=== PATIENT | female | born 1945 | race Caucasian/White ===

== ENCOUNTER 2020-02-15 12:01 | Emergency (ER) | payer MEDICARE, OTHER ==
[~2020-02-15] VITALS: Ht 160 cm; Wt 73.0 kg
--- NOTE | ~2020-02-15 | EMS ---
[place] [address] EMS Patient Care Report Name: DEANA MARES Room: [facility]#: [id number] Admission: 02/15/20 Attend Phys: Discharge: Date of : 47 Report #: [id number] THIS REPORT FOR: //name// Report Transmitted: 02/15/2020 13:30 EMS Care Summary [facility] Incident [id number] @ 02/15/2020 10:54 Incident Location [address] [place] [address] Patient DEANA MARES Female, 74 Years 1945 Patient Address [address] [place] [address] Patient History Chronic Obstructive Pulmonary Disease (COPD),Cardiac - Stent,Type 2 Diabetes, Patient Allergies Metformin, Patient Medications ASA, Chief Complaint Shortness of breath Disposition Transported No Lights/[place] Dispatch Reason Breathing Problem Transported To [facility] Narrative Dispatch: [facility] was dispatched for a female patient who is Covid-19 positive with a complaint of SOB and weakness. Med 1 copied tones and went en route with lights and sirens [place] [address] EMS Patient Care Report Name: DEANA MARES Room: [facility]#: [id number] Admission: 02/15/20 Attend Phys: Discharge: Date of : 47 Report #: [id number] Chief Complaint: Med 1 arrived on scene to find the patient sitting upright in her chair. Patient stated she was very weak and had shortness of breath. Patient stated she felt like she "couldn't catch her breath." Patient did not appear to be in any distress or discomfort. History of present illness/CABRERA: Patient stated she tested positive for Covid-19 a week prior and was released from [facility] 2 days prior to EMS arrival. Patient stated she "did not feel like she should have been released so early." Patient stated she has felt weak since receiving the positive result. Patient has a history of COPD. Patient is normally on home oxygen for covid relief, but was not wearing any upon EMS arrival. Assessment: Airway: Clear, patent, and self maintained. Breathing: Clear, and equal bilaterally. Non labored. Circulation: Skin is pink, warm, and dry. Disability: A&OX4, GCS 15. Exposures: No life threats were found. See "assessments" tab for further. Reason for ambulance: Patient stated she felt weak and had SOB and requested EMS transport to [place]. Treatments: ALS assessment. 5 lead EKG showing normal sinus. ETCO2 nasal cannula. 20G IV RAC. Vitals monitored throughout transport. Summary: Med 1 arrived on scene to find the patient sitting upright in her chair. Patient did not appear to be in any distress or discomfort. Patient stated she feels weak and has SOB. She states she tested positive for Covid-19 a week prior and was released from [facility] 2 days prior to EMS arrival for the same symptoms. Patient was released from the hospital on home oxygen at 2 liters nasal cannula. The patient stated she wanted to be transported to [facility] for further treatment and assessment. The patient was then placed onto the cot, secured in place, and placed into the ambulance for transport. Med 1 went en route with no lights or sirens to [place]. The patient was placed on 2 liters ETCO2 nasal cannula. A 5 lead EKG was performed showing normal sinus rhythm. A 20G IV was established and 100ML of LR was given throughout transport. The patient's overall condition improved throughout transport with oxygen administration. Radio report was given and no further questions or orders were received. Med 1 arrived at destination and the patient self transferred onto the hospital bed. Report was given and signatures and paperwork were received. Med 1 returned back in service. Initial Vitals @11:18R: 16,GCS: 15,Temp: 98.1F,Glucose: 187, @11:29P: 73,R: 17,EtCO2: 30,SpO2: 96, [place] [address] EMS Patient Care Report Name: DEANA MARES Room: [facility]#: [id number] Admission: 02/15/20 Attend Phys: Discharge: Date of : 47 Report #: [id number] @11:44P: 73,R: 15,EtCO2: 28,SpO2: 92,VT Suspected: false @11:50P: 73,R: 16,BP: 121/88,EtCO2: 25,SpO2: 94, @11:39P: 78,R: 14,BP: 113/56,EtCO2: 32,SpO2: 92, @11:24P: 76,R: 13,BP: 111/86,EtCO2: 26,SpO2: 97, @11:34P: 79,R: 18,BP: 80/57,EtCO2: 29,SpO2: 92, @11:13P: 0,R: 20,GCS: 15,EtCO2: 18,SpO2: 97,VT Suspected: false @11:19P: 79,R: 21,BP: 103/56,EtCO2: 28,SpO2: 90,VT Suspected: false Assessments @11:05MENTAL:Time Oriented,Person Oriented,Place Oriented,Event Oriented,SKIN:HEENT:LUNG SOUNDS:ABDOMEN:PELVIS//GI:EXTREMITIES:PULSE:Radial: 2+ Normal,NEURO:@11:20MENTAL:Person Oriented,Time Oriented,Place Oriented,Event Oriented,SKIN:HEENT:LUNG SOUNDS:ABDOMEN:PELVIS//GI:EXTREMITIES:PULSE:Radial: 2+ Normal,NEURO: Impression COVID-19 - Confirmed by testing Procedures @11:04ALS AssessmentResponse: UnchangedSucceeded@11:36Lactated Ringers 100cc (20 ga) Site: Antecubital-RightResponse: UnchangedSucceeded@11:15Oxygen FlowRate: 2 Device: CO2 Nasal Cannula Response: Improvedcceeded Timeline 10:54,Call Received 10:54,Dispatched 10:58,En Route 11:02,On Scene 11:03,At Patient 11:04,ALS Assessment,Response: UnchangedSucceeded, 11:13,BP: / M,PULSE: 0,RR: 20 R,SPO2: 97 Ox,ETCO2: 18 ,BG: ,PAIN: ,GCS: 15, 11:15,Oxygen FlowRate: 2 Device: CO2 Nasal Cannula Response: ImprovedSucceeded, 11:15,Depart Scene 11:18,BP: / M,PULSE: ,RR: 16 R,SPO2: Ox,ETCO2: ,B,PAIN: ,GCS: 15, 11:19,BP: 103/56 M,PULSE: 79,RR: 21 R,SPO2: 90 Ox,ETCO2: 28 ,BG: ,PAIN: ,GCS: , 11:24,BP: 111/86 M,PULSE: 76,RR: 13 R,SPO2: 97 Ox,ETCO2: 26 ,BG: ,PAIN: ,GCS: , 11:29,BP: / M,PULSE: 73,RR: 17 R,SPO2: 96 Ox,ETCO2: 30 ,BG: ,PAIN: ,GCS: , 11:34,BP: 80/57 M,PULSE: 79,RR: 18 R,SPO2: 92 Ox,ETCO2: 29 ,BG: ,PAIN: ,GCS: , 11:36,Lactated Ringers 100cc 20 ga Site: Antecubital-Right,Response: UnchangedSucceeded, 11:39,BP: 113/56 M,PULSE: 78,RR: 14 R,SPO2: 92 Ox,ETCO2: 32 ,BG: ,PAIN: ,GCS: , 11:44,BP: / M,PULSE: 73,RR: 15 R,SPO2: 92 Ox,ETCO2: 28 ,BG: ,PAIN: ,GCS: , 11:50,BP: 121/88 M,PULSE: 73,RR: 16 R,SPO2: 94 Ox,ETCO2: 25 ,BG: ,PAIN: ,GCS: , 11:53,At Destination 13:02,[place] [address] EMS Patient Care Report Name: DEANA MARES [id number] Admission: 02/15/20 Attend Phys: Discharge: Date of : 47 Report #: [id number] Disclaimer [email or web address] Copyright 2020 [employer] This EMS Care Summary contains data elements from the applicable legal record (which may be displayed differently). It is designed to provide pertinent information for the following purposes: continuity of care, clinical quality, and state data reporting. The complete legal record is available to ED staff and administrators of the receiving hospital in [employer]'s Patient Tracker. All data is provided "as is."
[2020-02-15 12:52] LABS: HEMATOCRIT 39.3 % (37.0-47.0); HEMOGLOBIN 12.8 gm/dL (12.0-15.0); MCH 30.7 pg (26.0-34.0); MCHC 32.6 g/dL (28.0-37.0); MCV 94.2 fL (80.0-100.0); MPV 9.3 fl. (7.2-11.1); NUCLEATED RBCS 0 /100WBC; PLATELET COUNT* 209 thou/uL (150-400); RBC 4.17 mil/uL (4.20-5.00); RDW-CV 13.4 % (10.5-14.5); WBC 13.6 thou/uL (4.0-11.0)
[2020-02-15 13:03] LABS: CALCIUM 8.9 mg/dL (8.5-10.1); POTASSIUM 3.7 mmol/L (3.5-5.1)
[2020-02-15 13:13] LABS: ALBUMIN 2.5 g/dL (3.4-5.0); APTT 22.5 Seconds (25.0-31.3); INR 1.1; PROTIME 11.2 Seconds (9.20-11.50); TOTAL BILIRUBIN 0.7 mg/dL (<0.1-1.0); TOTAL PROTEIN 6.7 g/dL (6.4-8.2)
[2020-02-15 13:26] LABS: ABSOLUTE EOSINOPHILS 0.1 thou/uL (0.0-0.7); ABSOLUTE LYMPHOCYTES 1.8 thou/uL (0.8-5.3); ABSOLUTE MONOCYTES 0.7 thou/uL (0.0-1.2); ANISOCYTOSIS 1+; PLATELET ESTIMATE ADEQUATE; POIKILOCYTOSIS 1+
[2020-02-15] MEDS ORDERED: ZOLOFT50 M1 PO (14:06)
[2020-02-15] MEDS ORDERED: CELEBREX 200 M200 M1 PO (14:07)
[2020-02-15] MEDS ORDERED: ASA81BEC PO (14:07)
[2020-02-15] MEDS ORDERED: DESYREL150 MG PO (14:07)
[2020-02-15] MEDS ORDERED: LIBRAX CAPSULE1 EACH PO (14:07)
[2020-02-15] MEDS ORDERED: TRELEGY ELLIPT1 EACH INH (14:08)
[2020-02-15] MEDS ORDERED: ALBUTEROL0.63 MG/3 INH (14:09)
[2020-02-15] MEDS ORDERED: MULTIVITAMINS1 EAC7 PO (14:09)
[2020-02-15] MEDS ORDERED: TOPROL XL25 MG PO (14:09)
[2020-02-15] MEDS ORDERED: AMARYL1 MG PO (14:09)
[2020-02-15] MEDS ORDERED: PRILOSEC OTC20 MG PO (14:10)
[2020-02-15] MEDS ORDERED: FIBER LAX625 MG PO (14:10)
[2020-02-15] MEDS ORDERED: CRESTOR40 MG PO (14:10)
[2020-02-15] MEDS ORDERED: FISH OIL 1,0001 EAC9 PO (14:10)
--- NOTE | 2020-02-17 10:16 | EKG ---
[place] [address] ELECTROCARDIOGRAM REPORT Name: DEANA MARES Room: [facility] [place]#: [id number] Admission: 02/15/20 Attend Phys: Discharge: 02/15/20 Date of : 47 Date of Service: 02/15/20 1210 Report #: [id number] THIS REPORT FOR: //name// [facility] ED Test Date: 2020-02-15 Test Time: 12:10:15 Pat Name: DEANA MARES Department: Patient ID: [id number]- Room: Gender: F Gravity Manager: KIMMY : 1945 Requested By: Yanick Pearson Order Number: [id number] MD: Esteban Mejía Measurements Intervals [place] Rate: 69 P: 71 AK: 143 QRS: 32 QRSD: 89 T: 31 QT: 418 QTc: 448 Interpretive Statements Sinus rhythm Electronically Signed On 02-17-2020 10:16:08 [employer]PER[employer] by Esteban Mejía [email or web address] <ELECTRONICALLY SIGNED> By: Esteban Mejía MD, [facility] 02/17/20 1016 1210 1210 Esteban Mejía MD, FACC /EPI
== END 2020-02-15 15:53 | disposition home or self-care (01) ==
LOC: M.ERS 12:01
PROVIDERS: Family Medicine
DX: U07.1 COVID-19 (principal); R53.1 Weakness; I10 Essential (primary) hypertension; Z88.5 Allergy status to narcotic agent; Z88.8 Allergy status to other drugs, medicaments and biological substances; K58.9 Irritable bowel syndrome, unspecified; Z90.49 Acquired absence of other specified parts of digestive tract; Z95.5 Presence of coronary angioplasty implant and graft